=== PATIENT | male | born 1990 | race African-American/Black ===

== ENCOUNTER 2020-03-14 02:53 | Emergency (ER) | payer MEDICAID ==
[2020-03-14 03:12] VITALS: BP 115/55
--- NOTE | 2020-03-14 03:56 | RADIOLOGY REPORT (SQ) ---
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 Findings: The cardiomediastinal silhouette is normal in size. No pneumothorax is seen. No acute airspace opacities are seen. No discrete pleural effusion is apparent. Impression: No acute airspace opacities are seen.
--- NOTE | 2020-03-17 12:42 | EKG REPORT ---
SEVERITY:- ABNORMAL ECG - SINUS RHYTHM LEFT ATRIAL ABNORMALITY BORDERLINE INFERIOR Q WAVES BORDERLINE T ABNORMALITIES, INFERIOR LEADS : Confirmed by: Dar Dominique MD 17-Mar-2020 12:41:45
== END 2020-03-14 06:03 | disposition left against medical advice (07) ==
LOC: ER 02:53
DX: Z53.21 Procedure and treatment not carried out due to patient leaving prior to being seen by health care provider (principal)
CPT/HCPCS: 71046

== ENCOUNTER 2020-03-14 06:34 | Emergency (ER) | payer MEDICAID ==
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
[2020-03-14] MEDS ORDERED: HALOPERIDOL LACTATE INJ 5 MG/1 ML VIAL IM ONE (07:32)
[2020-03-14] MEDS ORDERED: LORAZEPAM INJ 2 MG/1 ML VIAL IM ONE (07:32)
[2020-03-14 09:43] LABS: ABSOLUTE EOSINOPHILS # (AUTO) 0.1 10^3/uL (0.0-0.6); ABSOLUTE LYMPHOCYTES (AUTO) 1.8 10^3/uL (0.5-4.7); ABSOLUTE MONOCYTES (AUTO) 0.7 10^3/uL (0.1-1.4); BASOPHILS % (AUTO) 0.6 % (0-2); EOSINOPHILS % (AUTO) 1.1 % (0-6); HEMATOCRIT 40.2 % (37.9-51.0); HEMOGLOBIN 13.9 g/dL (13.5-17.0); LYMPHOCYTES % (AUTO) 20.8 % (13-45); MEAN CORPUSCULAR HEMOGLOBIN 32.1 pg (27.0-33.4); MEAN CORPUSCULAR HGB CONC 34.5 g/dL (32.0-36.0); MEAN CORPUSCULAR VOLUME 93 fl (80-97); PLATELET COUNT 329 10^3/uL (150-450); RED BLOOD COUNT 4.32 10^6/uL (4.35-5.55); RED CELL DISTRIBUTION WIDTH 13.3 % (11.5-14.0); SEGMENTED NEUTROPHILS % (AUTO) 69.5 % (42-78); TOTAL CELLS COUNTED % (AUTO) 100 %; WHITE BLOOD COUNT 8.6 10^3/uL (4.0-10.5)
[2020-03-14 10:17] LABS: ALBUMIN 4.8 g/dL (3.5-5.0); ALKALINE PHOSPHATASE 47 U/L (38-126); ANION GAP 10 (5-19); ASPARTATE AMINO TRANSFERASE 39 U/L (17-59); BILIRUBIN,DIRECT 0.2 mg/dL (0.0-0.4); BILIRUBIN,TOTAL 0.8 mg/dL (0.2-1.3); BLOOD UREA NITROGEN 15 mg/dL (7-20); CALCIUM 9.7 mg/dL (8.4-10.2); CARBON DIOXIDE 27 mmol/L (22-30); CHLORIDE 101 mmol/L (98-107); GLUCOSE 109 mg/dL (75-110); POTASSIUM 4.5 mmol/L (3.6-5.0); TOTAL PROTEIN 8.5 g/dL (6.3-8.2)
[2020-03-14 10:21] LABS: ACETAMINOPHEN < 10 ug/mL (10-30); ALCOHOL < 10 mg/dL (NONE DETECTED); SALICYLATE < 1.0 mg/dL (2.0-20.0)
--- NOTE | 2020-03-14 10:22 | RADIOLOGY REPORT (SQ) ---
EXAM DESCRIPTION: CT HEAD WITHOUT IMAGES COMPLETED DATE/TIME: 03/14/2020 9:06 am REASON FOR STUDY: altered mental status COMPARISON: None. TECHNIQUE: Axial images acquired through the brain without intravenous contrast. Images reviewed wi th bone, brain and subdural windows. Additional sagittal and coronal reconstructions were generated. Images stored on PACS. All CT scanners at this facility use dose modulation, iterative reconstruction, and/or weight based d osing when appropriate to reduce radiation dose to as low as reasonably achievable (ALARA). [facility]: Dose Right [facility]: CareDose [facility]: Dose Right [facility]: Teradose 4D [facility]: Smart Aquacue RADIATION DOSE: CT Rad equipment meets quality standard of care and radiation dose reduction techniq ues were employed. CTDIvol: 63.6 - 66.3 mGy. DLP: 1655 mGy-cm. mGy. LIMITATIONS: None. FINDINGS: VENTRICLES: Normal size and contour. CEREBRUM: No masses. No hemorrhage. No midline shift. No evidence for acute infarction. Normal gra y/white matter differentiation. No areas of low density in the white matter. CEREBELLUM: No masses. No hemorrhage. No alteration of density. No evidence for acute infarction. EXTRAAXIAL SPACES: No fluid collections. No masses. ORBITS AND GLOBE: No intra- or extraconal masses. Normal contour of globe without masses. CALVARIUM: No fracture. PARANASAL SINUSES: Patchy mucosal thickening/ debris in the ethmoid sinuses. Maxillary, sphenoid and frontal sinuses are clear. SOFT TISSUES: No mass or hematoma. OTHER: No other significant finding. IMPRESSION: NO ACUTE INTRACRANIAL IMAGING FINDINGS. MUCOSAL THICKENING AND DEBRIS IN THE MID ETHMOI D SINUSES. EVIDENCE OF ACUTE STROKE: NO. COMMENT: Quality ID # [id number]: Final reports with documentation of one or more dose reduction techniques (e.g., Automated exposure control, adjustment of the mA and/or kV according to patient size, use of iterative reconstruction technique) TECHNICAL DOCUMENTATION: JOB ID: [id number] 2010 [employer]- All Rights Reserved Reading location - IP/workstation name: [id number]
[2020-03-14 14:00] LABS: APPEARANCE,URINE SLIGHTLY-CLOUDY; BILIRUBIN,URINE NEGATIVE (NEGATIVE); COLOR,URINE YELLOW; GLUCOSE, URINE NEGATIVE (NEGATIVE); KETONES,URINE 20 mg/dL (NEGATIVE); LEUKOCYTE ESTERASE,URINE MODERATE (NEGATIVE); NITRITE,URINE NEGATIVE (NEGATIVE); PROTEIN,URINE 100 mg/dL (NEGATIVE); URINE SPECIFIC GRAVITY 1.032
--- NOTE | 2020-03-14 14:02 | ER Document Report ---
Doctor's Note Notes: 03/14/20 13:57 This is a 29-year-old male I was asked see along with midlevel provider with new onset of psychosis. This gentleman was seen in the emergency department with extreme paranoia reporting that some people were trying to harm him and spine on him. He was extremely hypervigilant walking up and down the halls trying to go in other rooms and look behind doors to see if anyone was sneaking up morning. We initially did not have any significant information regarding prior medical history but were not aware that he was taking a regular medications. There was no reported prior psychiatric history. I reviewed the chart and examined patient at bedside. This is a well-developed well-nourished male appearing approximately stated age who is hypervigilant and extremely paranoid. He appears to be potentially reacting to internal stimuli. He is very fearful of the examiner and ancillary medical personnel. His chest is clear his cardiac rhythm is regular without murmur gallop or rub further detailed examination was not initially possible due to lack of cooperation and his degree of paranoia. I think it is likely that this man has either accidentally or deliberately been exposed to recreational substances responsible for current mental status. I recommend that he have routine screening to include a CBC, comprehensive metabolic profile, EKG, blood alcohol, urinalysis and urine drug screen. At this time he is agitated enough that I think we need to sedate him with Haldol and Ativan to provide for his safety and the safety of our staff. I would also recommend noncontrast head CT. Consultation with behavioral service following medical clearance would appear appropriate as well.
[2020-03-14 14:12] LABS: URINE BARBITURATES SCREEN NEGATIVE; URINE BENZODIAZEPINES SCREEN NEGATIVE; URINE METHADONE SCREEN NEGATIVE; URINE PHENCYCLIDINE SCREEN NEGATIVE
[2020-03-14 14:27] LABS: URINE COCAINE SCREEN UNCONFIRMED POSITIVE
[2020-03-14 14:31] LABS: URINE MARIJUANA (THC) SCREEN UNCONFIRMED POSITIVE
[2020-03-14 14:54] VITALS: BP 126/62
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
--- NOTE | 2020-03-15 22:04 | EKG REPORT ---
SEVERITY:- NORMAL ECG - SINUS RHYTHM : Confirmed by: Bruno Hall MD 15-Mar-2020 22:03:44
== END 2020-03-14 15:09 | disposition home or self-care (01) ==
LOC: ER 06:34
DX: F15.10 Other stimulant abuse, uncomplicated (principal); F14.10 Cocaine abuse, uncomplicated; F12.10 Cannabis abuse, uncomplicated; F22 Delusional disorders; R41.0 Disorientation, unspecified; R00.0 Tachycardia, unspecified; R61 Generalized hyperhidrosis; F17.200 Nicotine dependence, unspecified, uncomplicated; F32.9 Major depressive disorder, single episode, unspecified; Z79.899 Other long term (current) drug therapy
CPT/HCPCS: 93005; 99285; 96372; 36415; 80307 ×4; 85025; 80053; 81001; 70450; 93010; J1630; J2060